=== PATIENT | female | born 1950 | race Caucasian/White ===

== ENCOUNTER 2017-10-22 07:31 | Outpatient (CLI) | payer MEDICARE, OTHER ==
[2017-10-22] MEDS ORDERED: ISOVUE-370 76%-LOCM 1 ML ONE (15:09)
== END 2017-10-22 07:32 | disposition home or self-care (01) ==
LOC: BICCT 07:31
PROVIDERS: ATTEND Internal Medicine Gastroenterology
DX: R10.31 Right lower quadrant pain (principal); K56.699 Other intestinal obstruction unspecified as to partial versus complete obstruction
CPT/HCPCS: 74177; 82565

== ENCOUNTER 2018-01-19 14:34 | Outpatient (CLI) | payer MEDICARE | END 2018-01-19 14:35 | disposition home or self-care (01) | LOC: BICMAMMO 14:34 | PROVIDERS: ATTEND Internal Medicine Geriatric Medicine | DX: Z12.31 Encounter for screening mammogram for malignant neoplasm of breast (principal); R92.1 Mammographic calcification found on diagnostic imaging of breast; Z80.3 Family history of malignant neoplasm of breast | CPT/HCPCS: 77063; 77067 ==

== ENCOUNTER 2019-01-20 08:19 | Outpatient (CLI) | payer MEDICARE ==
--- NOTE | 2019-01-20 08:58 | MMO ---
Bilateral MAMMO Bilat Screen [facility]. CLINICAL HISTORY: Patient is 68 years old and is seen for screening. The patient has the following family history of breast cancer: sister, at age 49. The patient has no personal history of cancer. VIEWS: The views performed were: bilateral craniocaudal with tomosynthesis and bilateral mediolateral oblique with tomosynthesis. FILMS COMPARED: The present examination has been compared to prior imaging studies performed at [facility] on 01/19/2018. This study has been interpreted with the assistance of computer-aided detection. MAMMOGRAM FINDINGS: There are scattered fibroglandular densities. There are no suspicious masses, suspicious calcifications, or new areas of architectural distortion. IMPRESSION: THERE IS NO MAMMOGRAPHIC EVIDENCE OF MALIGNANCY. A ROUTINE FOLLOW-UP MAMMOGRAM IN 1 YEAR IS RECOMMENDED. THE RESULTS OF THIS EXAM WERE SENT TO THE PATIENT. ACR BI-RADS Category 1 - Negative MAMMOGRAPHY NOTE: 1. A negative mammogram report should not delay a biopsy if a dominant of clinically suspicious mass is present. 2. Approximately 10% to 15% of breast cancers are not detected by mammography. 3. Adenosis and dense breasts may obscure an underlying neoplasm. Reported by: HALEIGH GALVAN MD Electonically Signed: [id number]
== END 2019-01-20 08:20 | disposition home or self-care (01) ==
LOC: BICMAMMO 08:19
PROVIDERS: ATTEND Family Medicine
DX: Z12.31 Encounter for screening mammogram for malignant neoplasm of breast (principal); Z80.3 Family history of malignant neoplasm of breast
CPT/HCPCS: 77063; 77067

== ENCOUNTER 2019-07-15 07:44 | Outpatient (CLI) | payer MEDICARE ==
--- NOTE | 2019-07-15 10:59 | ULT ---
BILATERAL RENAL ULTRASOUND WITH MOULTON SCALE, COLOR FLOW, AND SPECTRAL DOPPLER IMAGING: HISTORY: Chronic renal disease. FINDINGS: The right kidney measures 7.8 cm in length and the left kidney measures 10.4 cm in length. No focal mass or hydronephrosis is seen on either side. Cortical thickness is normal. There is mildly increa sed echogenicity. The peak systolic velocity in the right renal artery measures 126 cm/s and the left renal artery carson ures 25 cm/s with renal artery to aortic ratio 0.14 and 0.82 respectively in the right and left renal arteries. The resistive indices measures 0.7 on the right and 0.7 on the left. The urinary bladder is incompletely distended with a volume of 27.6 cc. IMPRESSION: 1. No evidence of high grade obstruction. 2. No evidence of hemodynamically significant renal artery stenosis. POS: KAILYNA
== END 2019-07-15 07:45 | disposition home or self-care (01) ==
LOC: BICULT 07:44
PROVIDERS: ATTEND Family Medicine
DX: N18.3 Chronic kidney disease, stage 3 (moderate) (principal)
CPT/HCPCS: 76770; 93975

== ENCOUNTER 2020-02-15 15:02 | Outpatient (CLI) | payer MEDICARE ==
--- NOTE | 2020-02-15 16:21 | MMO ---
Bilateral MAMMO Bilat Screen [facility]. CLINICAL HISTORY: Patient is 69 years old and is seen for screening. The patient has the following family history of breast cancer: sister, at age 49. The patient has no personal history of cancer. VIEWS: The views performed were: bilateral craniocaudal with tomosynthesis and bilateral mediolateral oblique with tomosynthesis. FILMS COMPARED: The present examination has been compared to prior imaging studies performed at [place] on 01/19/2018 and 01/20/2019. This study has been interpreted with the assistance of computer-aided detection. MAMMOGRAM FINDINGS: There are scattered fibroglandular densities. There are no suspicious masses, suspicious calcifications, or new areas of architectural distortion. IMPRESSION: THERE IS NO MAMMOGRAPHIC EVIDENCE OF MALIGNANCY. A ROUTINE FOLLOW-UP MAMMOGRAM IN 1 YEAR IS RECOMMENDED. THE RESULTS OF THIS EXAM WERE SENT TO THE PATIENT. ACR BI-RADS Category 1 - Negative MAMMOGRAPHY NOTE: 1. A negative mammogram report should not delay a biopsy if a dominant of clinically suspicious mass is present. 2. Approximately 10% to 15% of breast cancers are not detected by mammography. 3. Adenosis and dense breasts may obscure an underlying neoplasm. Reported by: ZAHRA MACEDO MD Electonically Signed: [id number]
== END 2020-02-15 15:03 | disposition home or self-care (01) ==
LOC: BICMAMMO 15:02
PROVIDERS: ATTEND Family Medicine
DX: Z12.31 Encounter for screening mammogram for malignant neoplasm of breast (principal); Z80.3 Family history of malignant neoplasm of breast
CPT/HCPCS: 77063; 77067

== ENCOUNTER 2020-07-31 09:08 | Outpatient (CLI) | payer MEDICARE | END 2020-07-31 09:09 | disposition home or self-care (01) | LOC: BICMAMMO 09:08 | PROVIDERS: ATTEND Student in an Organized Health Care Education/Training Program | DX: M85.851 Other specified disorders of bone density and structure, right thigh (principal); M85.852 Other specified disorders of bone density and structure, left thigh | CPT/HCPCS: 77080 ==

== ENCOUNTER 2021-04-09 08:30 | Outpatient (CLI) | payer MEDICARE | END 2021-04-09 08:31 | disposition home or self-care (01) | LOC: BICMAMMO 08:30 | PROVIDERS: ATTEND Student in an Organized Health Care Education/Training Program | DX: Z12.31 Encounter for screening mammogram for malignant neoplasm of breast (principal); Z80.3 Family history of malignant neoplasm of breast | CPT/HCPCS: 77063; 77067 ==

== ENCOUNTER 2021-07-17 09:09 | Outpatient (CLI) | payer MEDICARE | END 2021-07-17 09:10 | disposition home or self-care (01) | LOC: BICRAD 09:09 | PROVIDERS: ATTEND Registered Nurse Community Health | DX: Z87.898 Personal history of other specified conditions (principal) | CPT/HCPCS: 71046 ==

== ENCOUNTER 2021-10-04 16:12 | Inpatient (IN) | payer MEDICARE ==
[~2021-10-04 16:12] MED LIST: ISOVUE-370 76%-LOCM 1 ML ONE
[2021-10-04 17:24] LABS: #Lymphocytes 0.6 thou/uL (1.20-3.40); #Monocytes 0.2 thou/uL (0.11-0.59); #Neutrophils 8.3 thou/uL (1.40-6.50); %Basophils 0.1 % (0.0-1.0); %Eosinophils 0.1 % (0.0-10.0); %Lymphocytes 6.8 % (21.0-51.0); %Monocytes 2.3 % (0.0-10.0); %Neutrophils 90.7 % (42.0-75.0); Hemoglobin 10.5 g/dL (12.0-16.0); Mean Corpuscular HGB CONC 33.2 g/dL (32.0-36.0); Mean Corpuscular Hemoglobin 28.8 pg (27.0-31.0); Mean Corpuscular Volume 86.8 fL (78.0-98.0); Mean Platelet Volume 6.1 fL (7.4-10.4); Platelet Count 187 thou/uL (130-400); RBC Distribution Width 15.2 % (11.5-14.5); Red Blood Cell (RBC) Count 3.63 mill/uL (4.20-5.40); White Blood Cell (WBC) Count 9.1 thou/uL (4.8-10.8)
[2021-10-04 17:43] LABS: ALT (SGPT) 17 U/L (8-55); AST (SGOT) 22 U/L (5-34); Albumin 4.1 g/dL (3.4-4.8); Alkaline Phosphatase 100 U/L (40-110); Anion Gap 12 mmol/L (10-20); BUN (Urea Nitrogen) 20 mg/dL (9.8-20.1); Bilirubin, Total 0.6 mg/dL (0.2-1.2); Calc. Creatinine Clearance 0 mL/min (70-130); Calcium 9.2 mg/dL (7.8-10.44); Carbon Dioxide 27 mmol/L (23-31); Chloride 103 mmol/L (98-107); Estimated GFR 51; Globulin 2.9 g/dL (2.4-3.5); Glucose 299 mg/dL (83-110); Potassium 3.8 mmol/L (3.5-5.1); Sodium 138 mmol/L (136-145)
[2021-10-04] MEDS ORDERED: Morphine 4 MG/ML VIAL ONE (18:37)
[2021-10-04] MEDS ORDERED: Ondansetron PF 4 MG/2 ML Vial ONE (18:37)
[2021-10-04 20:08] LABS: Bacteria/HPF None Seen HPF (None Seen); Bilirubin Negative (Negative); Blood, Urine Trace (Negative); Clarity Clear (Clear); Glucose, Urine (Dipstick) 300 mg/dL (Negative); Ketone, Urine Negative (Negative); Leukocyte Negative Leu/uL (Negative); Nitrite Negative (Negative); Protein, Urine (Dipstick) Negative (Neg-Trace); Squamous Epithelial 0-3 HPF (0-3); Urobilinogen Normal mg/dL (Less than 2); WBC/HPF 0-3 HPF (0-3)
[2021-10-04 20:09] LABS: Specific Gravity, Urine Greater than 1.060 (1.002-1.036)
[2021-10-04] MEDS ORDERED: Benzocaine 20% Spray 60 ML CAN ONE (20:45)
[2021-10-04 22:56] VITALS: BMI 15.6
[2021-10-04 23:44] LABS: SARS-CoV-2 NAA Rapid Test Not Detected (NotDetected)
[2021-10-04] MEDS ORDERED: Morphine 2 MG/ML VIAL SLOW IVP PRN (23:55)
[2021-10-04] MEDS ORDERED: Ketorolac Tromethamine 30 MG/ML VIAL IVP PRN (23:55)
[2021-10-04] MEDS ORDERED: Ondansetron PF 4 MG/2 ML Vial IVP PRN (23:56)
[2021-10-04] MEDS ORDERED: hydrALAZINE 20 MG/ML VIAL SLOW IVP PRN (23:56)
[2021-10-04] MEDS ORDERED: Morphine 4 MG/ML VIAL SLOW IVP PRN (23:56)
[2021-10-05] MEDS: Lactated Ringer's 1,000 ML IV SCH ×2 (00:20→09:18)
[2021-10-05 12:25] VITALS: BP 158/68; TEMP 98
[2021-10-05] MEDS ORDERED: sulfaSALAzine 500 MG TAB PO SCH (15:00)
[2021-10-05] MEDS ORDERED: Enoxaparin Sodium 40 MG/0.4 ML SYRINGE SC SCH (21:00)
[2021-10-06] MEDS ORDERED: Amlodipine 5 MG TAB PO SCH (09:00)
[2021-10-06] MEDS ORDERED: Citrucel 500 MG TAB PO SCH (09:00)
[2021-10-06] MEDS ORDERED: Folic Acid 1 MG TAB PO SCH (09:00)
[2021-10-06] MEDS ORDERED: Polyethylene Glycol 3350 17 GM Packet PO SCH (09:00)
[2021-10-12] MEDS ORDERED: Ergocalciferol 1.25 MG(50,000 UNITS) CAP PO SCH (09:00)
== END 2021-10-05 15:50 | disposition home or self-care (01) | DRG 389 ==
LOC: ERS 16:12 → SJJU 20:31
PROVIDERS: ADMIT Specialist; ATTEND Specialist
PROC: 0D9670Z Drainage of Stomach with Drainage Device, Via Natural or Artificial Opening (ICD-10-PCS; principal; 2021-10-04)
DX: K56.609 Unspecified intestinal obstruction, unspecified as to partial versus complete obstruction (principal); K50.90 Crohn's disease, unspecified, without complications; I10 Essential (primary) hypertension; Z93.2 Ileostomy status; Z79.899 Other long term (current) drug therapy
CPT/HCPCS: 36415; 71045; 74177; 80053; 81003; 81015; 83690; 84484; 85025; 93005; 96374; 96375; J0360; J1885; J2270; J2405; J7120; Q9966; U0002

== ENCOUNTER 2022-01-03 09:53 | Outpatient (CLI) | payer MEDICARE | END 2022-01-03 09:54 | disposition home or self-care (01) | LOC: BICRAD 09:53 | PROVIDERS: ATTEND Registered Nurse Community Health | DX: R05.8 Other specified cough (principal) | CPT/HCPCS: 71046 ==

== ENCOUNTER 2022-01-07 10:10 | Outpatient (CLI) | payer MEDICARE | END 2022-01-07 11:10 | disposition home or self-care (01) | LOC: CTENTCT 10:10 | PROVIDERS: ATTEND Otolaryngology Plastic Surgery within the Head & Neck | DX: J32.8 Other chronic sinusitis (principal) | CPT/HCPCS: 70486 ==

== ENCOUNTER 2022-04-02 08:35 | Outpatient (CLI) | payer MEDICARE, OTHER ==
[2022-04-02] MEDS ORDERED: Iopamidol-370 76% 500 ML 1 ML ONE (12:56)
== END 2022-04-02 08:36 | disposition home or self-care (01) ==
LOC: BICCT 08:35
PROVIDERS: ATTEND Otolaryngology Plastic Surgery within the Head & Neck
DX: R05.3 Chronic cough (principal)
CPT/HCPCS: 71260; 82565; Q9967

== ENCOUNTER 2022-05-10 09:00 | Outpatient (CLI) | payer MEDICARE | END 2022-05-10 09:01 | disposition home or self-care (01) | LOC: BICMAMMO 09:00 | PROVIDERS: ATTEND Registered Nurse Hospice | DX: Z12.31 Encounter for screening mammogram for malignant neoplasm of breast (principal); Z80.3 Family history of malignant neoplasm of breast | CPT/HCPCS: 77063; 77067 ==

== ENCOUNTER 2022-06-11 09:45 | Outpatient (CLI) | payer MEDICARE, OTHER | END 2022-06-11 09:46 | disposition home or self-care (01) | LOC: RAD 09:45 | PROVIDERS: ATTEND Internal Medicine Critical Care Medicine | DX: R06.00 Dyspnea, unspecified (principal); H43.393 Other vitreous opacities, bilateral | CPT/HCPCS: 36415; 71046; 86606; 86612 ==

== ENCOUNTER 2022-12-17 15:10 | Outpatient (CLI) | payer MEDICARE, OTHER | END 2022-12-17 15:11 | disposition home or self-care (01) | LOC: RAD 15:10 | PROVIDERS: ATTEND Internal Medicine Critical Care Medicine | DX: R06.00 Dyspnea, unspecified (principal); R91.8 Other nonspecific abnormal finding of lung field; J47.9 Bronchiectasis, uncomplicated | CPT/HCPCS: 71046 ==

== ENCOUNTER 2023-09-24 09:53 | Outpatient (CLI) | payer MEDICARE | END 2023-09-24 09:54 | disposition home or self-care (01) | LOC: RAD 09:53 | PROVIDERS: ATTEND Internal Medicine Critical Care Medicine | DX: R06.00 Dyspnea, unspecified (principal); R91.8 Other nonspecific abnormal finding of lung field; J98.4 Other disorders of lung | CPT/HCPCS: 71046 ==

== ENCOUNTER 2024-03-24 09:49 | Outpatient (CLI) | payer MEDICARE ==
[2024-03-24 11:06] LABS: #Basophils Less than 0.03 10x3/uL (0.0-0.2); #Eosinophils Less than 0.03 10x3/uL (0.0-0.7); %Basophils 0.2 % (0.0-1.0); %Lymphocytes 25.6 % (21.0-51.0); %Monocytes 6.5 % (0.0-10.0); %Neutrophils 67.4 % (42.0-75.0); Hematocrit 34.4 % (36.0-47.0); Hemoglobin 10.9 g/dL (12.0-16.0); Mean Corpuscular HGB CONC 31.7 g/dL (32.0-36.0); Mean Corpuscular Hemoglobin 26.8 pg (27.0-31.0); Mean Corpuscular Volume 84.5 fL (78.0-98.0); Mean Platelet Volume 8.5 fL (7.4-10.4); Platelet Count 250 10x3/uL (130-400); Red Blood Cell (RBC) Count 4.07 mill/uL (4.20-5.40)
[2024-03-24 11:19] LABS: INR-International Normal Ratio 1.1; Prothrombin Time 14.6 sec (12.0-14.7)
[2024-03-24 11:46] LABS: Anion Gap 11 mmol/L (10-20); BUN (Urea Nitrogen) 21 mg/dL (9.8-20.1); Calc. Creatinine Clearance 0 mL/min (70-130); Carbon Dioxide 27 mmol/L (23-31); Chloride 105 mmol/L (98-107); Estimated GFR 70; Glucose 90 mg/dL (83-110); Sodium 139 mmol/L (136-145)
== END 2024-03-24 09:50 | disposition home or self-care (01) ==
LOC: LABBT 09:49
PROVIDERS: ATTEND Orthopaedic Surgery
DX: Z01.818 Encounter for other preprocedural examination (principal); M16.11 Unilateral primary osteoarthritis, right hip
CPT/HCPCS: 80048; 85025; 85610; 87081; 93005; 93010

== ENCOUNTER 2024-03-31 05:29 | Observation (INO) | payer MEDICARE ==
[2024-03-24 10:09] VITALS: BMI 15.0
[2024-03-31] MEDS ORDERED: Vancomycin 1 GM/200 ML (FROZEN) BAG ONE (06:30)
[2024-03-31] MEDS ORDERED: Vancomycin 1 GM in Premix 1 BAG IVPB SCH (06:30)
[2024-03-31] MEDS ORDERED: Sodium Chloride 0.9% 100 ML ONE (06:30)
[2024-03-31] MEDS ORDERED: Tranexamic Acid 1,000 MG/10 ML VIAL ONE (06:30)
[2024-03-31] MEDS ORDERED: Midazolam HCl 2 mg/2 ml Vial ONE (06:32)
[2024-03-31] MEDS ORDERED: fentaNYL 50 mcg/mL 1 mL Vial ONE (06:32)
[2024-03-31] MEDS ORDERED: CEFAZOLIN 2 GM VIAL ONE (07:04)
[2024-03-31] MEDS ORDERED: Propofol 1,000 MG/100 ML VIAL IV ONE (07:07)
[2024-03-31] MEDS ORDERED: Dexmedetomidine 200 MCG/2 ML VIAL ONE (07:18)
[2024-03-31] MEDS ORDERED: Dexamethasone 20 MG/5 ML VIAL ONE (07:23)
[2024-03-31] MEDS ORDERED: Ondansetron PF 4 MG/2 ML Vial ONE (07:23)
[2024-03-31] MEDS ORDERED: PHENYLEPHRINE-NS 100 MCG/ML 10 ML SYRINGE ONE (09:01)
[2024-03-31] MEDS ORDERED: ePHEDrine Sulfate 50 MG/10 ML VIAL ONE (09:17)
[2024-03-31] MEDS ORDERED: FENTANYL 500 MCG/10 ML VIAL 2,000 MCG in Sodium Chloride 0.9% 60 ML IV PRN (10:03)
[2024-03-31] MEDS ORDERED: Ondansetron PF 4 MG/2 ML Vial IVP PRN ×2 (10:03→10:11)
[2024-03-31] MEDS ORDERED: Naloxone HCl 0.4 mg/ml Vial IV PRN (10:03)
[2024-03-31] MEDS ORDERED: diphenhydrAMINE 25 MG CAP PO PRN ×2 (10:03→10:11)
[2024-03-31] MEDS ORDERED: diphenhydrAMINE 50 MG/ML VIAL IVP PRN (10:03)
[2024-03-31] MEDS ORDERED: diphenhydrAMINE 50 MG/ML VIAL IM PRN (10:03)
[2024-03-31] MEDS ORDERED: Promethazine HCl 25 MG/ML VIAL IM PRN ×3 (10:03→10:11)
[2024-03-31] MEDS ORDERED: traMADol HCl 50 MG TAB PO PRN ×2 (10:11)
[2024-03-31] MEDS ORDERED: Polyethylene Glycol 3350 17 GM Packet PO PRN (10:11)
[2024-03-31] MEDS ORDERED: Zolpidem Tartrate 5 MG TAB PO PRN (10:11)
[2024-03-31] MEDS ORDERED: HYDROcodone/Acetaminophen 10/325 mg Tablet PO PRN ×2 (10:11)
[2024-03-31] MEDS ORDERED: Ipratropium Bromide 0.06% Nasal Inhaler 15ml EA NARE PRN (10:11)
[2024-03-31] MEDS ORDERED: fentaNYL 50 mcg/mL 1 mL Vial SLOW IVP PRN (10:11)
[2024-03-31] MEDS ORDERED: ACTIVE PCA FS PRN (10:15)
[2024-03-31] MEDS ORDERED: Fentanyl CADD 100 ML IVPB PRN (10:18)
[2024-03-31] MEDS ORDERED: Albuterol 1.25 MG (3 mL) NEB NEB PRN (10:25)
[2024-03-31] MEDS: Aspirin 81 mg Enteric Coated Tablet PO SCH ×2 (12:10→21:16)
[2024-03-31] MEDS: Magnesium Oxide 400 MG TAB PO SCH (17:28)
[2024-03-31] MEDS: Folic Acid 1 MG TAB PO SCH (17:28)
[2024-03-31] MEDS: Ferrous Gluconate 324 MG TAB PO SCH ×2 (17:28→21:15)
[2024-03-31] MEDS: Calcium Carbonate 600 MG TAB PO SCH (17:28)
[2024-03-31] MEDS: Ergocalciferol 1.25 MG(50,000 UNITS) CAP PO SCH (17:28)
[2024-03-31] MEDS: Cholecalciferol 1,000 UNITS (25 MCG) TAB PO SCH (17:28)
[2024-03-31] MEDS: CEFAZOLIN 2 GM in Sodium Chloride 0.9% 100 ML IVPB SCH (17:29)
[2024-03-31] MEDS: Multivitamin W/ Minerals 1 TAB PO SCH (17:29)
[2024-03-31] MEDS: Zinc Sulfate 220 MG CAP PO SCH (17:29)
[2024-03-31] MEDS: Senokot S 8.6-50 MG TAB PO SCH ×2 (17:29→21:17)
[2024-03-31] MEDS: Ketorolac Tromethamine 30 MG (1 mL) VIAL IM SCH (17:29)
[2024-03-31] MEDS: Prenatal Vitamin 1 TAB PO SCH (18:45)
[2024-03-31] MEDS: Non-Formulary Item 1 EACH (Multivit-Minerals/Folic/Ginkgo [One Daily For Women 50+ Adv] 1 PO SCH (18:45)
[2024-03-31] MEDS: Non-Formulary Item 1 EACH (Ferrous Sulfate [Iron] 142 MG Tablet.Er) PO SCH (18:46)
[2024-03-31] MEDS: Sodium Chloride 0.9% 1,000 ML IV SCH (21:08)
[2024-03-31] MEDS: sulfaSALAzine 500 MG TAB PO SCH (22:35)
[2024-04-01 05:34] LABS: Hematocrit 24.6 % (36.0-47.0); Mean Corpuscular HGB CONC 32.5 g/dL (32.0-36.0); Mean Corpuscular Hemoglobin 26.9 pg (27.0-31.0); Mean Corpuscular Volume 82.8 fL (78.0-98.0); Mean Platelet Volume 8.9 fL (7.4-10.4); Platelet Count 203 10x3/uL (130-400); RBC Distribution Width 14.9 % (11.5-14.5); Red Blood Cell (RBC) Count 2.97 mill/uL (4.20-5.40)
[2024-04-01] MEDS ORDERED: traMADol HCl 50 MG TAB PO PRN (08:37)
[2024-04-01] MEDS ORDERED: HYDROcodone/Acetaminophen 7.5/325 mg Tablet PO PRN (08:38)
[2024-04-01] MEDS ORDERED: CADD ONE (08:39)
[2024-04-01] MEDS ORDERED: FENTANYL ONE (08:39)
[2024-04-01] MEDS: Multivitamin W/ Minerals 1 TAB PO SCH (09:12)
[2024-04-01] MEDS: Zinc Sulfate 220 MG CAP PO SCH (09:12)
[2024-04-01] MEDS: Magnesium Oxide 400 MG TAB PO SCH (09:13)
[2024-04-01] MEDS: Cholecalciferol 1,000 UNITS (25 MCG) TAB PO SCH (09:14)
[2024-04-01] MEDS: Calcium Carbonate 600 MG TAB PO SCH (09:14)
[2024-04-01] MEDS: Folic Acid 1 MG TAB PO SCH (09:14)
[2024-04-01] MEDS: Acetaminophen 325 MG TAB PO PRN (09:18)
[2024-04-01 12:36] VITALS: BP 133/59; TEMP 98.2
[2024-04-07] MEDS ORDERED: Ergocalciferol 1.25 MG(50,000 UNITS) CAP PO SCH (09:00)
== END 2024-04-01 12:00 | disposition home or self-care (01) ==
LOC: SDC 05:29 → SURG A 11:29 → SDC 12:16 → SURG A 12:28
PROVIDERS: ADMIT Orthopaedic Surgery; ATTEND Orthopaedic Surgery
PROC: 0SR90JZ Replacement of Right Hip Joint with Synthetic Substitute, Open Approach (ICD-10-PCS; principal; 2024-03-31)
DX: M16.0 Bilateral primary osteoarthritis of hip (principal); M81.0 Age-related osteoporosis without current pathological fracture; I10 Essential (primary) hypertension; K21.9 Gastro-esophageal reflux disease without esophagitis; D63.8 Anemia in other chronic diseases classified elsewhere; Z87.891 Personal history of nicotine dependence; Z78.0 Asymptomatic menopausal state; Z90.710 Acquired absence of both cervix and uterus; Z79.2 Long term (current) use of antibiotics; Z79.899 Other long term (current) drug therapy
CPT/HCPCS: 27130; 72170; 73501; 85027; 97110 ×2; 97116 ×2; 97535; C1713; C1776; J1100; J1885 ×2; J2250; J2405; J2704; J3010; J3370; J7030; 36415

== ENCOUNTER 2024-11-17 10:33 | Outpatient (CLI) | payer MEDICARE | END 2024-11-17 10:34 | disposition home or self-care (01) | LOC: RAD 10:33 | PROVIDERS: ATTEND Internal Medicine Critical Care Medicine | DX: R06.00 Dyspnea, unspecified (principal) | CPT/HCPCS: 71046 ==

== ENCOUNTER 2025-02-21 09:46 | Outpatient (CLI) | payer MEDICARE | END 2025-02-21 09:47 | disposition home or self-care (01) | LOC: RAD 09:46 | PROVIDERS: ATTEND Internal Medicine Critical Care Medicine | DX: R06.00 Dyspnea, unspecified (principal); R91.8 Other nonspecific abnormal finding of lung field | CPT/HCPCS: 71046 ==